=== PATIENT | female | born 1940 | race Caucasian/White ===

== ENCOUNTER 2017-05-02 11:59 | Outpatient (RCR) | payer MEDICARE, OTHER ==
[2015-05-11 22:14] VITALS: BP 163/86
== END 2017-07-31 | disposition home or self-care (01) ==
LOC: CARDREHAB
DX: Z48.812 Encounter for surgical aftercare following surgery on the circulatory system (principal); Z95.1 Presence of aortocoronary bypass graft; I10 Essential (primary) hypertension; I25.2 Old myocardial infarction

== ENCOUNTER → 2017-05-02 | Outpatient (CLI) | payer MEDICARE, OTHER ==
[2015-05-11 22:14] VITALS: BP 163/86
[~2017-05-02] MED LIST: ASPIR LOW81 MG PO; ATENOLOL50 MG PO; GLIPIZIDE ER5 MG PO; LATANOPROST 2.2.5 ML OP; LEVEMIR100 U/M1 SC; METFORMIN ER500 MG PO; MOMETASONE0.05 MG/Ac NAS; MULTIVITAMIN1 SGL PO; PREMARIN 0.60.625 M1 VG; PROAIR RESPICL90 MCG INH; TYLENOL 325MG325 MG PO; VICTOZA6 MG/ML SC; ZESTRIL 20MG TA20 MG PO
[2017-05-02 12:11] LABS: BUN/CREATININE RATIO 22.3 (6.0-26.0); CALCIUM 9.4 mg/dL (8.4-10.2); POTASSIUM 4.2 mmol/L (3.6-5.0)
== END ==
LOC: LAB 11:44
DX: E05.90 Thyrotoxicosis, unspecified without thyrotoxic crisis or storm (principal); I50.42 Chronic combined systolic (congestive) and diastolic (congestive) heart failure

== ENCOUNTER 2017-08-01 12:00 | Outpatient (RCR) | payer MEDICARE, OTHER ==
[2015-05-11 22:14] VITALS: BP 163/86
== END 2018-01-02 | disposition home or self-care (01) ==
LOC: CARDREHAB
DX: Z48.812 Encounter for surgical aftercare following surgery on the circulatory system (principal); Z95.1 Presence of aortocoronary bypass graft; I25.2 Old myocardial infarction

== ENCOUNTER 2018-02-18 13:40 | Outpatient (RCR) | payer MEDICARE, OTHER ==
[2015-05-11 22:14] VITALS: BP 163/86
== END 2018-05-19 | disposition home or self-care (01) ==
LOC: CARDREHAB
DX: Z48.812 Encounter for surgical aftercare following surgery on the circulatory system (principal); Z95.810 Presence of automatic (implantable) cardiac defibrillator

== ENCOUNTER 2018-05-20 13:00 | Outpatient (RCR) | payer MEDICARE, OTHER ==
[2015-05-11 22:14] VITALS: BP 163/86
== END 2018-08-18 | disposition still patient (30) ==
LOC: CARDREHAB
DX: Z48.812 Encounter for surgical aftercare following surgery on the circulatory system (principal); Z95.810 Presence of automatic (implantable) cardiac defibrillator